=== PATIENT | female | born 1930 ===

== ENCOUNTER 2017-01-08 11:41 | Inpatient (IN) | payer MEDICARE, MEDICAID ==
[2017-01-08] MEDS ORDERED: Albuterol HFA INHALER* 8 gm MDI INH PRN (14:00)
[2017-01-08] MEDS ORDERED: Morphine INJ* 2 MG/ML 1 ML SYRINGE IV PRN (14:03)
[2017-01-08] MEDS ORDERED: Ondansetron INJ* 2 MG/ML VIAL IV PRN (14:03)
[2017-01-08] MEDS: Heparin VIAL(*) 5000 UNITS/ML VIAL (FIVE THOUSAND) SUBCUT SCH ×2 (15:45→21:12)
--- NOTE | 2017-01-08 16:23 | ECHO ---
Patient: DONNY PENG [facility] Rec#: [id number] : 1930 Date: 01/08/2017 Age: 86y Height: 160.02 cm / 63.0 in Weight: 97.52 kg / 214.9 lbs Sex: F BSA: 1.99 Room#: 402 Admit Date#: 01/08/2017 Type: Inpatient Referring: Yahaira Calles NP Reading: Tali Dykes MD Fulfillment Mail Clerk: Nancy Cruz RDCS,RDMS CC: Isaak Martin MD Transthoracic Echocardiogram Indication: Murmur BP: 119/63 HR: 70 Rhythm: NSR Findings History: CVA, carotid disease, breast cancer Technical Comments: The study quality is good. Left Ventricle: The left ventricular chamber size is normal. Moderate concentric left ventricular hypertrophy is observed. The estimated ejection fraction is 60-65%. Abnormal left ventricular diastolic filling is observed, consistent with impaired relaxation. Left Atrium: The left atrium is mildly dilated. Right Ventricle: The right ventricle wall thickness is mildly increased. The right ventricular cavity size is normal. The right ventricular global systolic function is normal. Right Atrium: The right atrial cavity size is normal. Aortic Valve: The aortic valve is trileaflet. The aortic valve leaflets are moderately thickened. Systolic excursion of the aortic valve cusps is reduced. There is a trace of aortic regurgitation. There is moderate aortic stenosis. The mean gradient of the aortic valve is 11.5 mmHg. The aortic valve area, by peak velocities, is calculated at 1.2 cm2. Mitral Valve: The mitral valve leaflets are mildly thickened. There is a trace of mitral regurgitation. There is no evidence of mitral stenosis. Tricuspid Valve: The tricuspid valve leaflets are normal. There is mild tricuspid regurgitation. No pulmonary hypertension is noted. Pulmonic Valve: There is no evidence of pulmonic valve thickening. There is a trace pulmonic regurgitation. Pericardium: There is no significant pericardial effusion. Aorta: There is borderline dilatation of the ascending aorta. There is no dilatation of the aortic arch. There is no dilation of the aortic root. There is plaque visualized in the ascending aorta. Pulmonary Artery: The main pulmonary artery appears normal. Venous: The inferior vena cava is not visualized. Summary: There was not any prior study for comparison. Conclusions The left ventricular chamber size is normal. Moderate concentric left ventricular hypertrophy is observed. The estimated ejection fraction is 60-65%. Abnormal left ventricular diastolic filling is observed, consistent with impaired relaxation. The left atrium is mildly dilated. There is a trace of aortic regurgitation. There is moderate aortic stenosis. There is a trace of mitral regurgitation. There is mild tricuspid regurgitation. No pulmonary hypertension is noted. There is borderline dilatation of the ascending aorta. Measurements Name Value Normal Range RVIDd (AP) 2D 2.2 cm (0.9 - 2.6) RVDdMajor (2D) 3.2 cm (2.2 - 4.4) RAd ISD 4CH 4.4 cm (3.4 - 4.9) RA (A4C)W 3.7 cm (2.9 - 4.6) IVSd (2D) 1.4 cm (0.6 - 1) LVPWd (2D) 1.4 cm (0.6 - 1) LVIDd (2D) 4.9 cm (3.6 - 5.4) LVIDs (2D) 3.6 cm - LV FS (2D) 26 % (25 - 45) Aortic Annulus 2 cm (1.4 - 2.6) Ao root diameter (2D) 3.4 cm (2.1 - 3.5) Ascending Ao 3.6 cm (2.1 - 3.4) Aortic arch 2.4 cm (1.8 - 3.4) LA dimension (AP) 2D 4.6 cm (2.3 - 3.8) LAd ISD 4CH 6 cm (2.9 - 5.3) LA ISD 4CH W 4.5 cm (2.5 - 4.5) Name Value Normal Range LA ESV SP 4CH (A/L) 53.85 ml - LA ESV SP 2CH (A/L) 43.44 ml - LA ESV BP (A/L) 49.98 ml - LA ESV BP (A/L) index 25 ml/m2 - LA ESV SP 4CH (MOD) 48.92 ml - LA ESV SP 2CH (MOD) 41.34 ml - Name Value Normal Range MV E-wave Vmax 0.6 m/sec - MV deceleration time 208 msec - MV A-wave Vmax 1 m/sec - MV E:A ratio 0.6 ratio - LV septal e' Vmax 0.04 m/sec - LV lateral e' Vmax 0.06 m/sec - LV E:e' septal ratio 15 ratio - LV E:e' lateral ratio 10 ratio - Name Value Normal Range AV Vmax 2.4 m/sec - AV VTI 50.7 cm - AV peak gradient 23 mmHg - AV mean gradient 11.5 mmHg - LVOT diameter 2 cm - LVOT Vmax 0.9 m/sec - LVOT VTI 19.7 cm - LVOT peak gradient 3.2 mmHg - LVOT mean gradient 2 mmHg - DOI (VTI) 0.4 ratio - SV LVOT 61.17 ml - DENG (continuity Vmax) 1.2 cm2 - DENG (continuity VTI) 1.2 cm2 - CURTIS Vmax 0.7 m/sec - Name Value Normal Range MV Vmax 1.2 m/sec - MV VTI 28.2 cm - MV peak gradient 6 mmHg - MV mean gradient 2 mmHg - MV PHT 53 msec - MVA (PHT) 4.2 cm2 - MVA (continuity VTI) 2.2 cm2 - Name Value Normal Range TR Vmax 2.5 m/sec - TR peak gradient 25 mmHg - RAP 8 mmHg - RVSP 33 mmHg - Name Value Normal Range PV Vmax 0.9 m/sec - PV peak gradient 3.2 mmHg -
[2017-01-08] MEDS: Triamcinolone 0.025% OINT * 15 GM TUBE TOPICAL SCH ×2 (17:03→21:13)
--- NOTE | 2017-01-08 17:36 | PN ---
Progress Note - Progress Note Date of Service: 01/08/17 Note: Brief Surgical Note: (full consult dictated) S: (patient seen and examined both by myself and Dr. Blank) Briefly, a 86 yo female [place] resident w/ mult medical problems transferred from [facility] ED w/ recent hx of abd pain, N/V. She has undergone multiple abd surgeries, including repair of a ventral abd hernia by Dr. Blank in 2012. Per report, she drained 2 L of NG suction upon placement. At present she denies abd pain, though is somewhat somnolent, apparently from 5 mg Morphine given this a.m. at [facility]. Per her daughter, she has had chronic constipation and has has a couple of admissions to [facility] for what sounds like conservative treatment of SBO, with resolution. Those records are not immediately available. PMH reviewed includes: hx stroke; morbid obesity; HTN; HLD; OA; COPD (non-smoker); GERD; breast Ca (s/p L mastectomy). Meds reviewed. O: Vital Signs - 8 hr 01/08/17 12:43 Temperature 98.2 F Pulse Rate 76 Respiratory 22 Rate Blood Pressure 119/63 (mmHg) O2 Sat by Pulse 100 Oximetry Gen: WN, obese elderly female, somnolent but arouseable, in NAD Skin: some erythema of Right leg w/ increased temp of skin (c/w early cellulitis ?) HEENT: mm dry Heart: reg; holosystolic murmur heard throughout the precordium Lungs: clear Abd: +BS; obese; obvious swelling to right of midline c/w known ventral hernia; mult surgical incisions; per Dr. Blank, he feels that he was able to reduce the hernia entirely, though it immediately returned; there is mild to moderate tenderness within the hernia itself; the remainder of the abd exam is w/o sig tenderness, masses or organomegaly, though exam limited by obesity. Extr: changes c/w chronic venous stasis; poss early cellulitis RLE. CT: (from [facility]) ventral hernia w/ secondary SBO; Also, 5.6 cm AAA. Labs: mild leukocytosis w/ left shift; elevated BUN/cr; normal amylase A: SBO in 86 yo w/ mult med problems and w/o danger signs P: rec IV hydration; cont NG; pain and nausea control; repeat AXR in a.m.
[2017-01-08] MEDS: Metoprolol Tartrate IV* 1 MG/ML 5 ML VIAL IV SCH (18:11)
[2017-01-08] MEDS: Mometasone/Formoter 200/5 MDI INH SCH (19:43)
--- NOTE | 2017-01-08 20:22 | HP ---
CC: Dr. Isaak Martin * HISTORY AND PHYSICAL: DATE OF ADMISSION: 01/08/17 PRIMARY CARE PROVIDER: Dr. Isaak Martin. ATTENDING PHYSICIAN: Dr. Candelaria Menendez * (dictated by Rahat Zimmerman NP) CHIEF COMPLAINT: Nausea, vomiting, constipation, and abdominal pain. HISTORY OF PRESENT ILLNESS: Ms. Kenney is an 86-year-old female with past medical history significant for constipation, untreated sleep apnea, COPD, history of uterine cancer, history of cerebrovascular accident with right-sided weakness, GERD, hyperlipidemia, hypertension, osteoarthritis, and history of small bowel obstruction, who initially presented to [facility] today with complaints of no bowel movements since 01/05/17 and nausea, vomiting , and abdominal pain that started overnight. The patient reports being in her usual state of health. She resides at the [facility] in [place]. The patient denies any recent fever, chills, chest pain, or shortness of breath. While at [facility], the patient had a CT showing a ventral hernia with secondary small bowel obstruction and abdominal aortic inferior renal aneurysm without leakage. The patient had a Wallace catheter placed while at [facility]. It is also to note that the patient recently had several teeth extracted after having a dental infection, and had been placed on antibiotics. According to the patient's daughter, she is able to walk short distances with her walker, but is unable to walk very far due to arthritic pain in her knees. The case was discussed with Dr. Blank at [facility], who recommended the patient be transferred to [facility] for further evaluation and possible surgical intervention. The patient was admitted as a direct admission from [facility] to [facility]. PAST MEDICAL HISTORY: 1. History of anal fissure. 2. Constipation. 3. COPD. 4. Sleep apnea, currently untreated. 5. Uterine cancer. 6. History of cerebrovascular accident with right-sided weakness. 7. GERD. 8. Hyperlipidemia. 9. Diabetes mellitus, type 2. 10. Hypertension. 11. History of small bowel obstruction. 12. Osteoarthritis. 13. Bilateral lower extremity rash. 14. Recurrent urinary tract infections. PAST SURGICAL HISTORY: 1. Status post left mastectomy. 2. Status post hysterectomy and bilateral salpingo-oophorectomy. 3. Status post tumor removal from her right neck at age 13. 4. Status post umbilical hernia repair. 5. Status post lumbar laminectomy. MEDICATIONS: 1. Albuterol HFA inhaler 2 puffs inhalation every 4 hours as needed for shortness of breath or wheeze. 2. Simethicone 125 mg oral after meals and at bedtime as needed for gas pain. 3. Artificial tears 1.4% one drop to both eyes every 4 hours as needed for dry eye. 4. Levothyroxine 50 mcg oral daily. 5. Hydrochlorothiazide 12.5 mg oral daily. 6. Triamcinolone 0.1% ointment apply topical to left leg 3 times daily. 7. Nystatin powder apply topical 3 times daily as needed for perineal rash. 8. Zinc oxide apply topical as needed to zach area. 9. Gabapentin 300 mg oral 3 times daily. 10. Simvastatin 10 mg oral every evening. 11. Senna 1 tablet oral daily. 12. MiraLAX 17 g oral daily as needed for constipation. 13. Advair 250/50 one puff inhalation twice daily. 14. Colace 100 mg oral twice daily. 15. Diclofenac 75 mg oral twice daily. 16. Spiriva 1 puff inhalation daily. 17. Omeprazole 20 mg oral daily. 18. Atenolol 25 mg oral daily. 19. Aspirin 81 mg oral daily. 20. Neosporin apply topical twice daily as needed for skin irritation. 21. Robitussin 10 mL oral every 6 hours as needed for cough. 22. Calcium carbonate 2 tablets oral every 4 hours as needed for indigestion. 23. Acetaminophen 500 mg oral every 4 hours as needed for fever or pain. ALLERGIES: CELEBREX, CEPHALOSPORINS, CITRUS, PENICILLIN, and SULFA. FAMILY HISTORY: The patient has a son with a history of coronary artery disease. The patient has 3 daughters and 2 sons with a history of diabetes mellitus. The patient's father had a history of esophageal cancer. SOCIAL HISTORY: The patient denies tobacco, alcohol, or recreational drug use. She is retired and was a homemaker. The patient currently resides at [facility] in [place]. Her daughter, Tati Tovar, will be her surrogate decision maker in the event she is unable to make decisions for herself. REVIEW OF SYSTEMS: I performed a 14-point review of systems. All the pertinent positives and negatives are mentioned in the history of present illness. The remaining review of systems is negative. PHYSICAL EXAMINATION GENERAL APPEARANCE: The patient is alert, pleasant, appears to be in no acute distress. VITAL SIGNS: Temperature 98.2, heart rate 76, respiratory rate 22, O2 sat 100% on 3 L via nasal cannula, blood pressure 119/63. HEENT: Normocephalic, atraumatic. Pupils are equal and reactive to light. Extraocular movements are intact. RESPIRATORY: There is no accessory muscle use and the lungs are clear to auscultation bilateral. CARDIOVASCULAR: Regular rate and rhythm. S1 and S2 present. There is a 3/6 systolic murmur heard throughout the pericardium, but best at the left sternal border. ABDOMEN: Soft, nontender, slightly distended. There are hypoactive bowel sounds present. There is a large hernia noted to the right side of the abdomen. EXTREMITIES: There is no lower extremity edema. DP and PT pulses are 2+ and symmetric. MUSCULOSKELETAL: There is no clubbing or cyanosis noted. The patient exhibits good strength in all extremities. NEUROLOGICAL: The patient is alert and oriented to person and place. She is slightly drowsy per her daughter since she received pain medication at [facility]. Cranial nerves II through XII are grossly intact. PSYCHOLOGICAL: The patient is calm and cooperative. SKIN: The patient has some redness in her perineal area in addition to discoloration to bilateral shins. DIAGNOSTIC STUDIES/LAB DATA: From [facility], sodium 139, potassium 3.6, chloride 93, CO2 40, BUN 40, creatinine 2.5. White blood cell count 11.2, hemoglobin 12.7, hematocrit 39.9, and platelet count 287. EKG shows sinus rhythm with first degree AV block. Rate of 67. There are no acute signs of ischemia. There are no previous EKGs for comparison. Abdominal CT from [facility], radiologist's impression: Ventral hernia with secondary small bowel obstruction. Abdominal aortic infrarenal aneurysm without leakage. IMPRESSION: Ms. Kenney is an 86-year-old female with past medical history significant for constipation, chronic obstructive pulmonary disease, untreated sleep apnea, uterine cancer, diabetes mellitus, history of cerebrovascular accident, hypertension, hyperlipidemia, history of small bowel obstruction, who presents as a direct admission from [facility] to [facility] with a small bowel obstruction secondary to an incarcerated ventral hernia. ASSESSMENT AND PLAN: 1. Small bowel obstruction secondary to incarcerated ventral hernia. The patient will be n.p.o. She will have an NG tube to low-wall suction. Surgery has been asked to consult on the patient. According to the RCRI, the patient has 3 points placing her at a class 4 risk and 11% risk of a major cardiac event. She has a METs score of less than 4. She is only able to ambulate small distances with a walker. The patient needs no further cardiac workup at this time, but we will get echocardiogram to evaluate her systolic murmur. 2. Acute kidney injury. The patient's last creatinine in the system was 1.10 on 11/04/16, it is now 2.5. I suspect this is prerenal and secondary to dehydration as the patient has been having vomiting. We will give her IV fluids and recheck her labs in the morning. We will also hold nephrotoxic medications for the time being. 3. History of cerebrovascular accident. The patient has residual right-sided weakness. Provide supportive care. 4. Hypertension. The patient is currently normotensive. We are going to hold her oral medications, we will order metoprolol IV with holding parameters, we will hold her other oral medications at this time. 5. Hyperlipidemia. We will hold the patient's statin while she is n.p.o. and resume when she is able to take p.o. 6. Gastroesophageal reflux disease. I will hold the patient's oral medication , and give her famotidine IV daily. 7. Diabetes mellitus. The patient is currently diet controlled. She is not on any medications. Her hemoglobin A1c was 6.0 on 11/04/16. 8. Hypothyroidism. The patient's last TSH was 4.89 on 11/04/16. For now, we will hold her levothyroxine and resume when she is able to take oral medications. 9. Fluids, electrolytes, and nutrition. The patient will be n.p.o. 10. Code status. Full code. 11. DVT prophylaxis. The patient is a high risk and will be on subcu heparin. 12. Disposition. Inpatient. TIME SPENT: Time for this admission was 60 minutes and greater than half of that was spent with patient and daughter discussing medications, past medical history, and the events leading up to her arrival today and performing a physical examination. The case is reviewed with the attending, Dr. Menendez, who agrees with the plan of care. Reviewed by RAHAT ZIMMERMAN, YVETTE-Luis 01/10/17 1122 [id number]/[facility] #: [id number] H[place]
[2017-01-08] MEDS: Nystatin TOP POWDER* 15 GM BTL TOPICAL PRN (21:12)
--- NOTE | 2017-01-08 21:36 | CONS ---
[facility] * SURGICAL CONSULT NOTE: DATE OF CONSULT: 01/08/17 ATTENDING SURGEON: Kenny Blank MD (NATALIA Forrester dictating) CHIEF COMPLAINT: Abdominal pain, nausea, and vomiting. HISTORY OF PRESENT ILLNESS: This is an 86-year-old female whose history is obtained primarily from her chart record from [facility], jail record and her daughter. The patient is presently somnolent, apparently from a 5 mg dose of morphine given at [facility]. Her daughter states that this is not her normal state. History indicates that she has chronic constipation and has had multiple abdominal surgeries including ventral hernia repair with Dr. Blank in 2012 for incarcerated ventral hernia. That repair was done with component separation. She apparently began having abdominal pain and vomiting sometime last night. She presented to the ED this morning and was vomiting copious amounts of feculent smelling emesis. She reported [id number] generalized abdominal pain, worst in the epigastrium. Her daughter is unaware of the presence of a recurrent hernia, nor do her chart records indicate status of abdominal hernia. An NG tube was placed. CT scan was obtained at [facility] showing ventral hernia with secondary small bowel obstruction. The skin also showed an infrarenal abdominal aortic aneurysm measuring 5.6 cm without evidence of leakage. There is no free air noted. The patient had lab work ( see below); she was transferred to our facility. PAST MEDICAL HISTORY: 1. Morbid obesity. 2. Diet controlled diabetes. 3. Chronic constipation. 4. COPD. 5. GERD. 6. Hypertension. 7. Hyperlipidemia. 8. Osteoarthritis, particularly at the knees. 9. Recurrent UTIs 10. Stroke PAST SURGICAL HISTORY: 1. She was treated for breast cancer with left mastectomy without evidence of recurrence. 2. She has a history of hysterectomy and at least the one aforementioned abdominal hernia repair. 3. She also had surgery for a benign lesion of the base of the right neck remotely. 4. Her chart history also indicates carotid endarterectomy, though her daughter is not aware of that procedure. 5. Lumbar laminectomy. 6. Cardiac stent placement. CURRENT MEDICATIONS: Reviewed and include: 1. Atenolol 25 mg once daily. 2. Fluticasone-salmeterol 1 inhalation b.i.d. 3. Colace 100 mg b.i.d. 4. Diclofenac 75 mg b.i.d. 5. Polyethylene glycol 17 g p.r.n. 6. Spiriva 18 mcg 1 inhalation once daily. 7. Gabapentin 300 mg t.i.d. 8. Triamcinolone topical t.i.d. 9. Hydrochlorothiazide 12.5 mg daily. 10. Levothyroxine 50 mcg daily. 11. Trimethoprim 100 mg daily. 12. Senna 1 tablet p.o. daily. 13. Tylenol p.r.n. 14. Simvastatin 10 mg daily. 15. Aspirin 81 mg daily. 16. Omeprazole 20 mg daily. DRUG ALLERGIES: Listed include CEPHALOSPORINS, SULFA and CELEBREX, though specific reactions are not listed. SOCIAL HISTORY: The patient is a resident at the [facility]. Her daughter states that she is a lifelong nonsmoker, but did have significant secondhand smoke exposure. REVIEW OF SYSTEMS: No addition to those as noted above in the HPI and past medical history. PHYSICAL EXAMINATION: Vital Signs: Height 5 feet 3 inches, weight 215 pounds. Temperature 98.2, blood pressure 119/63, pulse 76, respirations 22, O2 saturation 100% on 3 L nasal cannula. General: Well-nourished, somnolent elderly female, in no acute distress with nasogastric tube in place. Skin: Warm and dry. No suspicious rashes or lesions noted. She does have some increased erythema and skin temperature of the right lower extremity possibly consistent with early cellulitis, but also could be positional related to the pillow between her legs. She does have chronic venous stasis changes of both lower extremities with hyperpigmentation, but no open areas or other acute changes. HEENT: Pupils equal and round. EOMs are intact. Mucous membranes are dry. She is edentulous. Neck: Well-healed scar at the base of the right neck. No palpable masses or organomegaly. Heart: Regular. Holosystolic murmur heard throughout the precordium. Lungs: Clear to auscultation. No rales or wheezes. Breasts not examined. She is status post left mastectomy. Abdomen: Obese, multiple well-healed surgical scars. There is visible swelling to the right of midline consistent with known ventral hernia. Bowel sounds are present. Abdomen is soft with mild to moderate tenderness over the hernia itself. Per Dr. Blank, he felt that he was able to reduce the hernia completely, though it returned quickly to its former position. No other palpable masses or organomegaly within limits of exam. Genitalia and Rectal: Not done. Back: No spinous process tenderness. Extremities: No edema. Chronic venous stasis changes as noted. Possible early cellulitis right lower extremity. Dorsalis pedis pulses are palpable, left 1+/2+, right 2+/2+. I am unable to palpate posterior tibial pulses. Neurological: Limited exam secondary to the level of sedation. LABORATORY DATA: Laboratory of note, (lab work from [facility]), white blood cell count 11.2 with left shift. Chemistries notable for BUN 40, creatinine 2.5, normal amylase. Normal liver function tests. Her magnesium is slightly elevated at 3.0. CT of the abdomen and pelvis with findings as noted above. IMPRESSION: Small bowel obstruction with ventral hernia, reducible. PLAN: At this point, the patient is not considered to be a good candidate for surgery. We will await and follow her clinical course and recheck of abdominal plain films in the morning. In the meantime, agree with IV hydration, pain and nausea control, and continued NG tube suction for decompression. NATALIA GOLD [id number]/[facility] #: [id number] [place]
[2017-01-09] MEDS: Metoprolol Tartrate IV* 1 MG/ML 5 ML VIAL IV SCH ×2 (00:20→05:39)
[2017-01-09 04:51] LABS: Hematocrit 31 % (35-47); Hemoglobin 10.1 g/dl (12.0-16.0); Mean Corpuscular HGB Conc 32 g/dl (31-36); Mean Corpuscular Hemoglobin 29 pg (27-31); Mean Corpuscular Volume 88 fL (80-97); Mean Platelet Volume 9 um3 (7.4-10.4); Red Blood Count 3.53 10^6/ul (4.0-5.4); Red Cell Distribution Width 16 % (10.5-15); White Blood Count 5.4 10^3/ul (3.5-10.8)
[2017-01-09 05:01] LABS: BUN/Creatinine Ratio 22.5 (8-20); Calcium 8.6 mg/dL (8.6-10.3); EGFR African American 65.9 (>60); EGFR Non-African American 51.3 (>60); Potassium 3.3 mmol/L (3.5-5.0)
[2017-01-09] MEDS: Heparin VIAL(*) 5000 UNITS/ML VIAL (FIVE THOUSAND) SUBCUT SCH ×3 (05:38→21:22)
[2017-01-09] MEDS: Triamcinolone 0.025% OINT * 15 GM TUBE TOPICAL SCH ×3 (07:34→21:22)
[2017-01-09] MEDS: Nystatin TOP POWDER* 15 GM BTL TOPICAL PRN ×2 (07:34→21:22)
--- NOTE | 2017-01-09 08:06 | RAD ---
INDICATION: Small bowel obstruction COMPARISON: None TECHNIQUE: Erect and supine views of the abdomen are submitted. FINDINGS: Bones: There are no acute bony findings. Soft tissues: There is a nasogastric tube near the GE junction with mild deviation to the right. The nasogastric tube will likely require repositioning. The psoas margins are sharp. Bowel gas pattern: Normal Calcifications: There is a large curvilinear calcification in the central abdomen which could be related to a large aneurysm perhaps with a saccular configuration. Suggest immediate CT imaging. Other: None IMPRESSION: POSSIBLE LARGE AORTIC ANEURYSM. SUGGEST CT IMAGING FINDINGS CALLED TO MONCIA POLANCO M.D. ON JANUARY 09, 2017 AT 0800 HOURS
--- NOTE | 2017-01-09 08:12 | PN ---
Subjective Date of Service: 01/09/17 Interval History: Patient seen this morning. Denies any pain, wondering when NG tube can be removed. No reported N/V overnight. Patient does not think she passed gas. Not much recollection about events leading up to hospitalization. Says something is wrong with her belly, mentions a hernia. Family History: Unchanged from Admission Social History: Unchanged from Admission Past Medical History: Unchanged from Admission Objective Active Medications: Albuterol (Ventolin Hfa Inhaler*) 2 puff INH Q4H PRN Device (Tiotropium Inhaler Device*) 1 each INH 0900 ONE Heparin Sodium (Porcine) (Heparin Vial(*)) 5,000 units SUBCUT Q8HR TOMMY Famotidine 20 mg/ Sodium (Chloride) 102 mls @ 408 mls/hr IVPB DAILY TOMMY Lactated Ringer's (Lactated Ringers 1000 Ml Bag*) 1,000 mls @ 100 mls/hr IV PER RATE TOMMY Metoprolol Tartrate (Lopressor Iv*) 5 mg IV Q6H TOMMY Mometasone Furoate/Formoterol Fumar (Dulera 200/5 Mdi*) 2 puff INH BID TOMMY Morphine Sulfate (Morphine Inj (Syringe)*) 2 mg IV Q4H PRN Nystatin (Nystatin Top Powder*) 1 applic TOPICAL TID PRN Ondansetron HCl (Zofran Inj*) 4 mg IV Q6H PRN Tiotropium [place] (Spiriva Cap.Inh*) 1 cap INH DAILY TOMMY Triamcinolone Acetonide (Triamcinolone 0.025% Oint *) 1 applic TOPICAL TID TOMMY Vital Signs 01/08/17 01/08/17 01/08/17 12:43 16:00 17:18 Temperature 98.2 F 98.9 F Pulse Rate 76 75 Respiratory 12 12 Rate Blood Pressure 119/63 121/47 (mmHg) O2 Sat by Pulse 100 96 100 Oximetry 01/08/17 01/08/17 01/09/17 22:13 23:09 00:00 Temperature 98.5 F 99.0 F Pulse Rate 72 71 Respiratory 16 15 Rate Blood Pressure 109/49 115/47 (mmHg) O2 Sat by Pulse 95 98 98 Oximetry 01/09/17 01/09/17 01/09/17 03:20 04:14 07:30 Temperature 99.2 F 98.3 F Pulse Rate 78 73 70 Respiratory 16 18 Rate Blood Pressure 137/65 97/45 (mmHg) O2 Sat by Pulse 90 95 96 Oximetry Oxygen Devices in Use Now: Nasal Cannula - 2L Appearance: Elderly, F, laying in bed in NAD Eyes: No Scleral Icterus Ears/Nose/Mouth/Throat: - - Dry MM Neck: NL Appearance and Movements; NL JVP Respiratory: Symmetrical Chest Expansion and Respiratory Effort, Clear to Auscultation Cardiovascular: RRR, - - CORDELL Abdominal: - - Obese, soft, non-tender, ventral hernia, BS+ Lymphatic: No Cervical Adenopathy Extremities: No Edema Skin: No Rash or Ulcers Neurological: - - Alert, oriented, no focal deficits Lines/Tubes/Other Access: Clean, Dry and Intact Naso-enteral Tube Result Diagrams: 01/09/17 04:18 01/09/17 04:18 Microbiology and Other Data: Microbiology 01/08/17 18:30 Nasal Screen MRSA (PCR)(VERO) - Final Nasal Mrsa Negative Assess/Plan/Problems-Billing Assessment: SBO, ventral hernia, GILBERT in an 86 yo F with hx of HTN, HLD, COPD, diet- controlled DM, CVA with R sided weakness, hypothyroidism - Patient Problems (1) SBO (small bowel obstruction) Current Visit: Yes Comment: Appreciate surgery assistance. Not much NGT output overnight. AXR this AM, pending read but Dr. Blank felt they showed improvement. Will remove NG tube. Start sips of clears. (2) GILBERT (acute kidney injury) Current Visit: Yes Comment: Resolved with IVF (3) CVA (cerebral vascular accident) Current Visit: Yes Comment: Restart ASA and statin when tolerating PO (4) HTN (hypertension) Current Visit: Yes Comment: Hold scheduled IV Metoprolol. Can start to add back oral anti-hypertensives when needed once taking PO (5) GERD (gastroesophageal reflux disease) Current Visit: Yes Comment: Continue IV famotidine for now. Resume oral omeprazole once taking PO. (6) Hypothyroidism Current Visit: Yes Comment: Resume home synthroid once taking PO (7) COPD (chronic obstructive pulmonary disease) Current Visit: Yes Comment: No evidence of exacerbation. Continue Spiriva, Dulera and prn albuterol. Wean O2. (8) DVT prophylaxis Current Visit: Yes Comment: HSQ Status and Disposition: Inpatient for SBO
--- NOTE | 2017-01-09 08:23 | PN ---
Progress Note - Progress Note Date of Service: 01/09/17 Note: Day #2 SBO Feeling well, no pain, no N/V. More alert and talkative. NGT drainage small. Abd: Obese, soft, minimally tender. Hernia soft, nontender. Labs OK. AXR normal bowel gas pattern. Impr: Resolving SBO. Would D/C NGT and start sips of clears.
[2017-01-09] MEDS: Mometasone/Formoter 200/5 MDI INH SCH ×2 (08:42→19:18)
[2017-01-09] MEDS: Tiotropium CAP.INH* CAP.INH/18 MCG INH SCH (08:42)
[2017-01-09] MEDS ORDERED: Spiriva Inhaler DEVICE* 1 EACH DEVICE INH ONE (09:00)
[2017-01-10] MEDS: Heparin VIAL(*) 5000 UNITS/ML VIAL (FIVE THOUSAND) SUBCUT SCH ×3 (05:07→22:12)
[2017-01-10 06:30] LABS: BUN/Creatinine Ratio 18.5 (8-20); Calcium 9.3 mg/dL (8.6-10.3); EGFR Non-African American 66.9 (>60); Potassium 3.3 mmol/L (3.5-5.0)
[2017-01-10] MEDS: Tiotropium CAP.INH* CAP.INH/18 MCG INH SCH (07:38)
[2017-01-10] MEDS: Mometasone/Formoter 200/5 MDI INH SCH ×2 (07:39→20:10)
--- NOTE | 2017-01-10 08:08 | PN ---
Subjective Date of Service: 01/10/17 Interval History: Patient seen this morning. Continues to be a bit confused, was able to tell me she is in the hospital in [place]. Upset that she has not been able to move her bowels despite "feeling it right there". Reports she has passed some gas. Denies abdominal pain, no N/V. Family History: Unchanged from Admission Social History: Unchanged from Admission Past Medical History: Unchanged from Admission Objective Active Medications: Albuterol (Ventolin Hfa Inhaler*) 2 puff INH Q4H PRN Heparin Sodium (Porcine) (Heparin Vial(*)) 5,000 units SUBCUT Q8HR TOMMY Famotidine 20 mg/ Sodium (Chloride) 102 mls @ 408 mls/hr IVPB DAILY TOMMY Lactated Ringer's (Lactated Ringers 1000 Ml Bag*) 1,000 mls @ 100 mls/hr IV PER RATE TOMMY Mometasone Furoate/Formoterol Fumar (Dulera 200/5 Mdi*) 2 puff INH BID TOMMY Morphine Sulfate (Morphine Inj (Syringe)*) 2 mg IV Q4H PRN Nystatin (Nystatin Top Powder*) 1 applic TOPICAL TID PRN Ondansetron HCl (Zofran Inj*) 4 mg IV Q6H PRN Tiotropium [place] (Spiriva Cap.Inh*) 1 cap INH DAILY TOMMY Triamcinolone Acetonide (Triamcinolone 0.025% Oint *) 1 applic TOPICAL TID TOMMY Vital Signs 01/09/17 01/09/17 01/09/17 08:13 08:44 11:25 Temperature 98.3 F Pulse Rate 74 Respiratory 18 16 Rate Blood Pressure 117/51 (mmHg) O2 Sat by Pulse 94 93 Oximetry 01/09/17 01/09/17 01/10/17 20:00 23:17 03:33 Temperature 98.4 F 98.6 F Pulse Rate 78 81 Respiratory 16 16 16 Rate Blood Pressure 132/58 122/55 (mmHg) O2 Sat by Pulse 94 97 Oximetry Oxygen Devices in Use Now: None Appearance: Elderly, F, sitting in chair in NAD Eyes: No Scleral Icterus Ears/Nose/Mouth/Throat: - - Dry MM Neck: NL Appearance and Movements; NL JVP Respiratory: Symmetrical Chest Expansion and Respiratory Effort, Clear to Auscultation Cardiovascular: - - Mild tachycardia, CORDELL Abdominal: - - Soft, large ventral hernia, non-tender, BS+ Lymphatic: No Cervical Adenopathy Extremities: No Edema Skin: No Rash or Ulcers Neurological: - - Alert, oriented to self and place only, no focal deficits Lines/Tubes/Other Access: Clean, Dry and Intact Wallace Result Diagrams: 01/09/17 04:18 01/10/17 05:38 Microbiology and Other Data: Microbiology 01/08/17 18:30 Nasal Screen MRSA (PCR)(VERO) - Final Nasal Mrsa Negative Assess/Plan/Problems-Billing Assessment: SBO, ventral hernia, GILBERT in an 86 yo F with hx of HTN, HLD, COPD, diet- controlled DM, CVA with R sided weakness, hypothyroidism - Patient Problems (1) SBO (small bowel obstruction) Current Visit: Yes Comment: Appreciate surgery assistance. Seems to be tolerating sips of clear, will trial clear liquid diet. Continue IVF until taking PO reliably. Continue prn antiemetics and analgesics. (2) GILBERT (acute kidney injury) Current Visit: Yes Comment: Resolved with IVF (3) CVA (cerebral vascular accident) Current Visit: Yes Comment: Resume ASA and statin (4) HTN (hypertension) Current Visit: Yes Comment: BPs OK. Hold home anti-hypertensives. (5) GERD (gastroesophageal reflux disease) Current Visit: Yes Comment: Resume home omeprazole (6) Hypothyroidism Current Visit: Yes Comment: Resume home synthroid (7) COPD (chronic obstructive pulmonary disease) Current Visit: Yes Comment: No evidence of exacerbation. Continue Spiriva, Dulera and prn albuterol. Wean O2. (8) DVT prophylaxis Current Visit: Yes Comment: HSQ Status and Disposition: Inpatient for SBO. May need KATHARINA.
[2017-01-10] MEDS ORDERED: Acetaminophen TAB* 325 MG PO PRN (08:29)
[2017-01-10] MEDS ORDERED: Potassium Chlor TAB* 20 MEQ TAB.ER PO ONE (08:29)
--- NOTE | 2017-01-10 09:00 | PN ---
Progress Note - Progress Note Date of Service: 01/10/17 SOAP: Subjective: Requesting an enema. Objective: Vital Signs Temp 98.6 F 01/10/17 03:33 Pulse 81 01/10/17 03:33 Resp 16 01/10/17 03:33 BP 122/55 01/10/17 03:33 Pulse Ox 97 01/10/17 03:33 Sitting up in chair. NAD. Abd: soft and NT, +BS Intake & Output 01/09/17 01/10/17 01/10/17 18:59 06:59 18:59 Intake Total 1594 956 Output Total 350 1900 Balance 1244 -944 Intake: IV Fluids 1392 956 Lactated Ringers 1392 452 famotidine 504 IVPB 102 famotidine 102 Oral 100 0 Output: Urine 1900 Wallace 350 Other: # Bowel Movements 0 Laboratory Results - last 24 hr 01/10/17 05:38 Sodium 138 Potassium 3.3 L Chloride 98 L Carbon Dioxide 34 H Anion Gap 6 BUN 15 Creatinine 0.81 Est GFR ( Amer) 86.0 Est GFR (Non-Af Amer) 66.9 BUN/Creatinine Ratio 18.5 Glucose 84 Calcium 9.3 Assessment: resolving SBO Plan: Fleet's enema. Clears to full liquids as tolerated until bowel function returns.
[2017-01-10] MEDS ORDERED: Sodium Phosphate ADULT ENEMA* 118 ml bottle PR ONE (09:04)
[2017-01-10] MEDS: Aspirin EC Low Dose* 81 MG TAB.EC PO SCH (09:15)
[2017-01-10] MEDS: Levothyroxine TAB* 50 MCG TAB PO SCH (09:15)
[2017-01-10] MEDS: Omeprazole CAP* 20 MG PO SCH (09:16)
[2017-01-10] MEDS: Triamcinolone 0.025% OINT * 15 GM TUBE TOPICAL SCH ×3 (09:18→22:13)
[2017-01-10] MEDS: CMCS:Simvastatin TAB(NF) 10 MG TAB PO SCH (18:19)
[2017-01-11] MEDS: Heparin VIAL(*) 5000 UNITS/ML VIAL (FIVE THOUSAND) SUBCUT SCH ×3 (06:28→21:05)
[2017-01-11] MEDS: Levothyroxine TAB* 50 MCG TAB PO SCH (06:29)
[2017-01-11] MEDS: Omeprazole CAP* 20 MG PO SCH (07:40)
[2017-01-11] MEDS: Aspirin EC Low Dose* 81 MG TAB.EC PO SCH (07:40)
[2017-01-11] MEDS: Triamcinolone 0.025% OINT * 15 GM TUBE TOPICAL SCH ×3 (07:40→22:59)
[2017-01-11] MEDS: Tiotropium CAP.INH* CAP.INH/18 MCG INH SCH (08:01)
[2017-01-11] MEDS: Mometasone/Formoter 200/5 MDI INH SCH ×2 (08:02→19:45)
[2017-01-11] MEDS: Gabapentin CAP(*) 100 MG PO SCH ×3 (08:21→21:05)
--- NOTE | 2017-01-11 09:07 | PN ---
Subjective Date of Service: 01/11/17 Interval History: Patient seen this morning. Reports BMs yesterday, feeling better. Tolerated clears yesterday and having full liquids this morning. No N/V, no abdominal pain. Family History: Unchanged from Admission Social History: Unchanged from Admission Past Medical History: Unchanged from Admission Objective Active Medications: Acetaminophen (Tylenol Tab*) 650 mg PO Q6H PRN Albuterol (Ventolin Hfa Inhaler*) 2 puff INH Q4H PRN Aspirin (Aspirin Ec Low Dose*) 81 mg PO DAILY TOMMY Gabapentin (Neurontin Cap(*)) 100 mg PO TID TOMMY Heparin Sodium (Porcine) (Heparin Vial(*)) 5,000 units SUBCUT Q8HR TOMMY Levothyroxine Sodium (Synthroid Tab*) 50 mcg PO DAILY@0600 TOMMY Mometasone Furoate/Formoterol Fumar (Dulera 200/5 Mdi*) 2 puff INH BID TOMMY Nystatin (Nystatin Top Powder*) 1 applic TOPICAL TID PRN Omeprazole (Prilosec Cap*) 20 mg PO DAILY@0730 [facility] Ondansetron HCl (Zofran Inj*) 4 mg IV Q6H PRN Simvastatin (Zocor(Nf)) 10 mg PO QPM TOMMY Tiotropium [place] (Spiriva Cap.Inh*) 1 cap INH DAILY TOMMY Triamcinolone Acetonide (Triamcinolone 0.025% Oint *) 1 applic TOPICAL TID [facility] Vital Signs 01/10/17 01/10/17 01/10/17 09:37 11:14 15:31 Temperature 98.8 F 99.2 F Pulse Rate 81 78 Respiratory 18 14 16 Rate Blood Pressure 148/67 125/68 (mmHg) O2 Sat by Pulse 95 92 93 Oximetry 01/10/17 01/11/17 01/11/17 23:54 03:38 07:30 Temperature 98.4 F 98.2 F 98.6 F Pulse Rate 81 78 81 Respiratory 16 16 15 Rate Blood Pressure 135/63 132/55 122/59 (mmHg) O2 Sat by Pulse 93 94 94 Oximetry Oxygen Devices in Use Now: None Appearance: Elderly, F, sitting in chair in NAD Eyes: No Scleral Icterus Ears/Nose/Mouth/Throat: Mucous Membranes Moist, - - Edentulous Neck: NL Appearance and Movements; NL JVP Respiratory: Symmetrical Chest Expansion and Respiratory Effort, Clear to Auscultation Cardiovascular: - - Mild tachycardia, mild CORDELL Abdominal: - - Soft, non-tender, ventral hernia, BS+, no rebound/guarding Lymphatic: No Cervical Adenopathy Extremities: No Edema Skin: No Rash or Ulcers Neurological: - - Alert, oriented, no focal deficits Result Diagrams: 01/09/17 04:18 01/10/17 05:38 Microbiology and Other Data: Assess/Plan/Problems-Billing Assessment: SBO, ventral hernia, GILBERT in an 86 yo F with hx of HTN, HLD, COPD, diet- controlled DM, CVA with R sided weakness, hypothyroidism - Patient Problems (1) SBO (small bowel obstruction) Current Visit: Yes Comment: Appreciate surgery assistance. Tolerating full liquids, can advance to softs later today. D/C IVF. Continue prn antiemetics and analgesics. (2) GILBERT (acute kidney injury) Current Visit: Yes Comment: Resolved with IVF (3) CVA (cerebral vascular accident) Current Visit: Yes Comment: Resume ASA and statin (4) HTN (hypertension) Current Visit: Yes Comment: BPs OK. Hold home anti-hypertensives. (5) GERD (gastroesophageal reflux disease) Current Visit: Yes Comment: Continue home omeprazole (6) Hypothyroidism Current Visit: Yes Comment: Continue home synthroid (7) COPD (chronic obstructive pulmonary disease) Current Visit: Yes Comment: No evidence of exacerbation. Continue Spiriva, Dulera and prn albuterol. Wean O2. (8) DVT prophylaxis Current Visit: Yes Comment: HSQ Status and Disposition: Inpatient for SBO. May need KATHARINA.
--- NOTE | 2017-01-11 13:38 | PN ---
Progress Note - Progress Note Date of Service: 01/11/17 SOAP: Subjective: She is reporting no pain. Tolerating full liquid diet. Denies nausea. Reports +flatus and BMs. Objective: Vital Signs Temp 98.6 F 01/11/17 07:30 Pulse 76 01/11/17 08:04 Resp 18 01/11/17 10:21 BP 122/59 01/11/17 07:30 Pulse Ox 94 01/11/17 08:04 NAD, sitting up in chair, smiling. Abd: Distended, soft, non-tender. Intake & Output 01/10/17 01/11/17 01/11/17 18:59 06:59 18:59 Intake Total 2469 704 1222 Output Total 300 Balance 2169 704 1222 Intake: IV Fluids 1099 704 872 Lactated Ringers 1099 704 872 Oral 1370 0 350 Output: Wallace 300 Other: Estimated Void Medium Date of Last Bowel Movement # Bowel Movements 3 Estimated Stool Amount Medium # Voids 1 Assessment: Resolved SBO Plan: Transitional diet. Will sign-off. Please recall PRN.
[2017-01-11] MEDS ORDERED: Docusate CAP* 100 MG PO PRN (14:40)
[2017-01-11] MEDS: CMCS:Simvastatin TAB(NF) 10 MG TAB PO SCH (16:15)
[2017-01-12] MEDS: Heparin VIAL(*) 5000 UNITS/ML VIAL (FIVE THOUSAND) SUBCUT SCH (06:08)
[2017-01-12] MEDS: Levothyroxine TAB* 50 MCG TAB PO SCH (06:08)
[2017-01-12 08:40] VITALS: BP 132/70
[2017-01-12] MEDS: Tiotropium CAP.INH* CAP.INH/18 MCG INH SCH (08:45)
[2017-01-12] MEDS: Mometasone/Formoter 200/5 MDI INH SCH (08:45)
[2017-01-12] MEDS: Aspirin EC Low Dose* 81 MG TAB.EC PO SCH (08:56)
[2017-01-12] MEDS: Gabapentin CAP(*) 100 MG PO SCH (08:56)
[2017-01-12] MEDS: Omeprazole CAP* 20 MG PO SCH (08:56)
[2017-01-12] MEDS: Triamcinolone 0.025% OINT * 15 GM TUBE TOPICAL SCH (08:59)
--- NOTE | 2017-01-12 11:32 | DCNOTE ---
Patient seen this morning. Feels well, no abdominal pain. Slight sensation of constipation. Tolerating soft PO diet with no issues. On exam, RRR, s1 and s2 present, no m/g/r, abd soft, non-tender, ventral hernia , BS+, trace LE edema Discharge to [place] [facility] today.
--- NOTE | 2017-01-12 12:18 | DS ---
CC: Dr. Isaak Martin * DATE OF ADMISSION: 01/08/2017. DATE OF DISCHARGE: 01/12/2017. PRIMARY CARE PHYSICIAN: Dr. Isaak Martin. PRINCIPAL DISCHARGE DIAGNOSIS: Small bowel obstruction. SECONDARY DIAGNOSES: COPD, constipation, sleep apnea, history of CVA, GERD, hyperlipidemia, diabetes, hypertension, history of SBO. DISCHARGE MEDICATION REGIMEN: 1. Albuterol two puffs inhaled every 4 hours as needed for shortness of breath or wheezing. 2. Simethicone 125 mg by mouth as needed for gas pain. 3. Artificial Tears one drop in both eyes every 4 hours as needed for dry eyes. 4. Synthroid 50 mcg by mouth daily. 5. Triamcinolone one application topical 3 times daily. 6. Nystatin one application topical 3 times daily as needed for rash. 7. Zinc Oxide one application topical as needed for wound care. 8. Gabapentin 300 mg by mouth 3 times daily. 9. Zocor 10 mg by mouth nightly. 10. Senna one tablet by mouth daily. 11. MiraLax 17 gm by mouth daily as needed for constipation. 12. Advair one puff inhaled 2 times daily. 13. Docusate 100 mg by mouth 2 times daily. 14. Voltaren 75 mg by mouth 2 times daily. 15. Spiriva one puff inhaled daily. 16. Omeprazole 20 mg by mouth daily. 17. Atenolol 25 mg by mouth daily. 18. Aspirin 81 mg by mouth daily. 19. Neomycin one application topical 2 times daily as needed for wound care. 20. Guaifenesin 10 ml by mouth every 6 hours as needed for cough. 21. Calcium carbonate two tablets by mouth every 4 hours as needed for indigestion. 22. Tylenol 500 mg by mouth every 4 hours as needed for pain. 23. Hydrochlorothiazide 12.5 mg by mouth was held on this admission. STUDIES DONE DURING HOSPITALIZATION: 1. Transthoracic echocardiogram: Conclusion: Left ventricular chamber size is normal. Moderate concentric LVH. Estimated ejection fraction is 60 to 65 percent. Abnormal left ventricular diastolic filling is observed, consistent with impaired relaxation. Left atrium is mildly dilated. Trace aortic regurgitation. Moderate aortic stenosis. Trace of mitral regurgitation. Mild tricuspid regurgitation. No pulmonary hypertension is noted. There is borderline dilatation of the ascending aorta. 2. Abdominal x-ray: Impression: Possible large aortic aneurysm. Suggest CT imaging. CONSULTANTS DURING HOSPITALIZATION: Dr. Kenny Blank, General Surgery. HISTORY OF PRESENT ILLNESS AND HOSPITAL SUMMARY: Please see the full history and physical by Yahaira Omalley NP for full details. Briefly, Ms. Kenney is an 86-year-old female who initially presented to [facility] with complaints of constipation, nausea, vomiting, and abdominal pain. 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 There was concern that the patient may need surgical intervention, so she was transferred to [facility]. NG tube was placed. The patient was seen by Dr. Blank and the decision was made to try to treat the patient conservatively. She had some mild GILBERT at [place] that improved with IV fluids. The patient was initially made NPO. Over the following days, she began to pass flatus and then had a bowel movement. Her diet was slowly advanced. NG tube was able to be removed with no recurrent nausea, vomiting or abdominal pain. On the day of discharge, the patient was tolerating a soft diet with no issues. Due to her deconditioning and concern for additional needs at home, she will be transferred to [facility] for subacute rehab. The patient's blood pressures were relatively normal with occasionally low blood pressures. Her Atenolol will be restarted; however, her Hydrochlorothiazide will be held for now. This can be resumed when she becomes hypertensive. Total time spent on this discharge was 45 minutes. This is a summary of the hospitalization. Please see the full medical record for further details. [id number]/CPS #: [id number] [facility]
== END 2017-01-12 13:25 | DRG 394 ==
LOC: MED 12:42 → OBSVTOIN 12:50 → MED 12:50
PROVIDERS: ADMIT Hospitalist; ATTEND Hospitalist
PROC: 0D9670Z Drainage of Stomach with Drainage Device, Via Natural or Artificial Opening (ICD-10-PCS; principal; 2017-01-08)
DX: K43.6 Other and unspecified ventral hernia with obstruction, without gangrene (principal); N17.9 Acute kidney failure, unspecified; I69.351 Hemiplegia and hemiparesis following cerebral infarction affecting right dominant side; J44.9 Chronic obstructive pulmonary disease, unspecified; E11.9 Type 2 diabetes mellitus without complications; K59.00 Constipation, unspecified; G47.33 Obstructive sleep apnea (adult) (pediatric); K21.9 Gastro-esophageal reflux disease without esophagitis; E78.5 Hyperlipidemia, unspecified; I10 Essential (primary) hypertension; I71.4 Abdominal aortic aneurysm, without rupture; M17.0 Bilateral primary osteoarthritis of knee; I87.8 Other specified disorders of veins; E03.9 Hypothyroidism, unspecified; I44.0 Atrioventricular block, first degree; E86.0 Dehydration; Z87.440 Personal history of urinary (tract) infections; Z85.42 Personal history of malignant neoplasm of other parts of uterus; Z79.1 Long term (current) use of non-steroidal anti-inflammatories (NSAID); Z79.82 Long term (current) use of aspirin; Z79.899 Other long term (current) drug therapy; Z88.6 Allergy status to analgesic agent; Z88.0 Allergy status to penicillin; Z88.2 Allergy status to sulfonamides; Z88.8 Allergy status to other drugs, medicaments and biological substances; Z91.018 Allergy to other foods; Z82.49 Family history of ischemic heart disease and other diseases of the circulatory system; Z83.3 Family history of diabetes mellitus; Z80.0 Family history of malignant neoplasm of digestive organs; E66.9 Obesity, unspecified; Z68.38 Body mass index [BMI] 38.0-38.9, adult; Z85.3 Personal history of malignant neoplasm of breast
CPT/HCPCS: 36415; 74020; 80048; 85025; 87641; 93005; 93306; 94640; 94760; A9270-GY; J1644